=== PATIENT | male | born 1960 | race Two or more races ===

== ENCOUNTER 2022-06-28 13:38 | Emergency (ER) | payer MEDICAID, OTHER ==
[~2022-06-28] VITALS: Ht 165.1 cm; Wt 63.5 kg
[2022-06-28 14:13] LABS: BASOPHILS # (AUTO) 0.1 K/uL (0.0-0.2); BASOPHILS % (AUTO) 0.9 % (0.0-2.0); HEMATOCRIT 43 % (39-51); HEMOGLOBIN 14.1 g/dL (13.5-17.5); LYMPHOCYTES # (AUTO) 2.8 K/uL (0.8-4.8); LYMPHOCYTES % (AUTO) 44.5 % (20.0-44.0); MEAN CORPUSCULAR HGB CONC 33 g/dl (31.0-36.0); MEAN CORPUSCULAR VOLUME 97 fL (80-96); MONOCYTES # (AUTO) 0.5 K/uL (0.1-1.30); MONOCYTES % (AUTO) 8.5 % (2.0-12.0); NEUTROPHILS # (AUTO) 2.9 K/uL (1.8-8.9); NEUTROPHILS % (AUTO) 45.1 % (43.0-81.0); PLATELET COUNT (AUTO) 240 K/uL (150-450); RED BLOOD CELL COUNT(AUTO) 4.44 MIL/uL (4.5-6.0); WHITE BLOOD COUNT (AUTO) 6.3 K/uL (4.3-11.0)
[2022-06-28 15:42] LABS: ALANINE AMINOTRANSFERASE 42 U/L (12-78); ALBUMIN 3.8 g/dL (3.4-5.0); ALKALINE PHOSPHATASE 97 U/L (46-116); ASPARTATE AMINOTRANSFERASE 47 U/L (15-37); BILIRUBIN,DIRECT 0.1 mg/dL (0.0-0.2); BILIRUBIN,TOTAL 0.3 mg/dL (0.2-1.0); CALCIUM, SERUM 8.8 mg/dL (8.5-10.1); CARBON DIOXIDE 31 mmol/L (21-32); CHLORIDE 100 mmol/L (98-107); CREATININE 1.5 mg/dL (0.6-1.3); GLUCOSE 118 mg/dL (74-106); POTASSIUM 3.2 mmol/L (3.5-5.1); SODIUM SERUM 139 mmol/L (136-145); TOTAL PROTEIN, SERUM 7.4 g/dL (6.4-8.2); UREA NITROGEN, BLOOD 18 mg/dL (7-18)
[2022-06-28] MEDS ORDERED: LORAZEPAM 1 MG TABLET PO ONE (16:00)
[2022-06-28] MEDS ORDERED: ONDANSETRON HCL/PF 4 MG/2 ML VIAL IV ONE (16:00)
[2022-06-28] MEDS ORDERED: IV NS 0.9% 1,000 ML IV ONE (16:00)
[2022-06-28] MEDS ORDERED: ONDANSETRON HCL/PF 4 MG/2 ML VIAL ONE (16:01)
[2022-06-28] MEDS ORDERED: LORAZEPAM 1 MG TABLET ONE (16:02)
[2022-06-28] MEDS ORDERED: CHLO25CA22 PO (16:03)
[2022-06-28] MEDS ORDERED: ONDA4TAB5 PO (16:03)
--- NOTE | 2022-06-28 17:02 | NUR ---
PT GAVE CONSENT TO COMMUNICATE WITH BROTHER BUT TO WITHHOLD PERSONAL LAB RESULTS. PT SAID OK TO SAY PT IS AT HOSPITAL AND STABLE.
--- NOTE | 2022-06-28 17:32 | NUR ---
Dad is coming to pick him up.
[2022-06-28 18:13] VITALS: BP 110/66
--- NOTE | 2022-06-28 18:14 | NUR ---
Patient discharged to home in stable condition. Written and verbal after care instructions given. Patient verbalizes understanding of instruction.
== END 2022-06-28 18:13 | disposition home or self-care (01) ==
LOC: ER 15:32
DX: R55 Syncope and collapse (principal); F10.239 Alcohol dependence with withdrawal, unspecified; F10.229 Alcohol dependence with intoxication, unspecified; E87.6 Hypokalemia; I10 Essential (primary) hypertension; E78.5 Hyperlipidemia, unspecified; Z79.899 Other long term (current) drug therapy; Y90.9 Presence of alcohol in blood, level not specified
CPT/HCPCS: 99285; 96374; 70450; 71045; 96361; 93005; 85025; 80048; 80076; 36415; 84484; J2405; J7030